=== PATIENT | male | born 1995 | race Caucasian/White ===

== ENCOUNTER 2018-08-13 17:23 | Emergency (ER) | payer SELFPAY ==
[~2018-08-13] VITALS: Ht 172.7 cm; Wt 82.0 kg
[2018-08-13 17:51] VITALS: BP 144/97
[2018-08-13] MEDS ORDERED: IBUPROFEN 200 MG TABLET PO ONE (18:00)
[2018-08-13] MEDS ORDERED: IBUPROFEN 200 MG TABLET ONE (18:05)
== END 2018-08-13 19:01 | disposition home or self-care (01) ==
LOC: ED 18:50
DX: S62.657A Nondisplaced fracture of middle phalanx of left little finger, initial encounter for closed fracture (principal); S63.267A Dislocation of metacarpophalangeal joint of left little finger, initial encounter; W21.05XA Struck by basketball, initial encounter; Y93.67 Activity, basketball; Y92.320 Baseball field as the place of occurrence of the external cause; Y99.8 Other external cause status
CPT/HCPCS: 26605; 99284